=== PATIENT | female | born 1995 | race African-American/Black ===

== ENCOUNTER 2024-10-01 22:14 | Emergency (ER) | payer MEDICAID ==
[~2024-10-01] VITALS: Ht 167.6 cm; Wt 74.0 kg
[2024-10-01 22:15] VITALS: BP 140/88; PULSE 110; RESP 22; TEMP 98.5; O2SAT 100
[2024-10-02 00:09] LABS: BASOPHILS % 0.2 % (0.0-2.0); DIFFERENTIAL COMMENT 0; EOSINOPHILS % 0.8 % (0.0-5.0); HEMATOCRIT. 37.6 % (36.0-48.0); LYMPHOCYTES % 32.1 % (20.0-50.0); MEAN CORPUSCULAR HEMOGLOBIN 36.1 pg (28.0-32.0); MEAN CORPUSCULAR HGB CONC 34.5 g/dL (31.0-37.0); MEAN CORPUSCULAR VOLUME 104.7 fL (81.0-99.0); MEAN PLATELET VOLUME 7.2 fl (7.4-10.4); MONOCYTES % 11.3 % (2.0-8.0); NEUTROPHILS % 55.6 % (40.0-76.0); PLATELET 187 x1000/uL (130-400); RED BLOOD CELL COUNT 3.59 mill/uL (4.2-5.4); RED CELL DISTRIBUTION WIDTH 14.8 % (11.6-14.6)
[2024-10-02 00:13] LABS: CHLORIDE 109 mEq/L (98-107); POTASSIUM 4.3 mEq/L (3.5-5.1); SODIUM 146 mEq/L (136-145)
[2024-10-02 00:14] LABS: CALCIUM 9.8 mg/dL (8.7-10.4); CARBON DIOXIDE 27 mEq/L (21-32)
[2024-10-02 00:19] LABS: CREATININE 0.7 mg/dL (0.6-1.0); GLUCOSE 86 mg/dL (70-105)
[2024-10-02 00:21] LABS: ALANINE AMINOTRANSFERASE 80 IU/L (10-49); ALBUMIN 4.6 g/dL (3.2-4.8); ASPARTATE AMINOTRANSFERASE 75 IU/L (<34); BILIRUBIN DIRECT 0.1 mg/dL (<=3.0); BILIRUBIN TOTAL 0.3 mg/dL (0.1-1.0); LACTIC ACID 2.7 mmol/L (0.4-2.0); PROTEIN TOTAL 7.9 g/dL (6.0-8.3)
[2024-10-02 00:30] LABS: ETHANOL BLOOD 316 mg/dL (<10)
[2024-10-02 00:44] LABS: UREA NITROGEN BLOOD < 5 mg/dL (9-23)
[2024-10-02 01:10] LABS: HCG SCREEN NEGATIVE
[2024-10-02] MEDS ORDERED: NAPR220C61 MT (03:40)
== END 2024-10-02 04:33 | disposition home or self-care (01) ==
LOC: ER 22:14
DX: M79.661 Pain in right lower leg (principal); M79.10 Myalgia, unspecified site; I10 Essential (primary) hypertension
CPT/HCPCS: 36415; 80048; 80076; 80320; 83605; 84703; 85025; 86850; 86900; 93971; 99284; G0480

== ENCOUNTER 2024-10-11 01:21 | Emergency (ER) | payer MEDICAID ==
[~2024-10-11] VITALS: Ht 162.6 cm; Wt 71.0 kg
[~2024-10-11 01:21] MED LIST: NAPR220C61 MT
[2024-10-11 01:46] VITALS: BP 115/76; TEMP 97.8; O2SAT 99
[2024-10-11 02:52] VITALS: PULSE 121; RESP 20; O2SAT 98
[2024-10-11 04:27] LABS: BASOPHILS % 0.2 % (0.0-2.0); DIFFERENTIAL COMMENT 0; EOSINOPHILS % 1.1 % (0.0-5.0); HEMATOCRIT. 36.6 % (36.0-48.0); HEMOGLOBIN. 12.5 g/dL (12.0-16.0); LYMPHOCYTES % 56.2 % (20.0-50.0); MEAN CORPUSCULAR HGB CONC 34.3 g/dL (31.0-37.0); MEAN PLATELET VOLUME 6.9 fl (7.4-10.4); MONOCYTES % 12.4 % (2.0-8.0); NEUTROPHILS % 30.1 % (40.0-76.0); PLATELET 466 x1000/uL (130-400); RED BLOOD CELL COUNT 3.48 mill/uL (4.2-5.4); RED CELL DISTRIBUTION WIDTH 15.3 % (11.6-14.6); WHITE BLOOD COUNT 4.6 x1000/uL (4.5-11.0)
[2024-10-11 04:35] LABS: CHLORIDE 107 mEq/L (98-107); POTASSIUM 3.4 mEq/L (3.5-5.1); SODIUM 144 mEq/L (136-145)
[2024-10-11 04:36] LABS: CALCIUM 9.6 mg/dL (8.7-10.4); CARBON DIOXIDE 27 mEq/L (21-32)
[2024-10-11 04:41] LABS: CREATININE 0.7 mg/dL (0.6-1.0); GLUCOSE 96 mg/dL (70-105)
[2024-10-11 05:00] LABS: UREA NITROGEN BLOOD < 5 mg/dL (9-23)
[2024-10-11 05:19] LABS: HCG SCREEN NEGATIVE
[2024-10-11] MEDS ORDERED: AZIT250T12 MT (05:32)
== END 2024-10-11 05:45 | disposition home or self-care (01) ==
LOC: ER 01:21
DX: J20.9 Acute bronchitis, unspecified (principal); I10 Essential (primary) hypertension; F41.9 Anxiety disorder, unspecified; Z98.890 Other specified postprocedural states
CPT/HCPCS: 36415; 71045; 80048; 84703; 85025; 99284

== ENCOUNTER 2025-02-22 21:54 | Emergency (ER) | payer MEDICAID ==
[~2025-02-22] VITALS: Ht 162.6 cm; Wt 70.0 kg
[~2025-02-22 21:54] MED LIST changes: +AZIT250T12 MT
[2025-02-22 21:56] VITALS: O2SAT 100
[2025-02-23] LABS: BASOPHILS % 0.6 % (0.0-2.0); DIFFERENTIAL COMMENT 0; EOSINOPHILS % 1.8 % (0.0-5.0); HEMATOCRIT. 39.8 % (36.0-48.0); HEMOGLOBIN. 13.3 g/dL (12.0-16.0); MEAN CORPUSCULAR HEMOGLOBIN 35.7 pg (28.0-32.0); MEAN CORPUSCULAR HGB CONC 33.4 g/dL (31.0-37.0); MEAN CORPUSCULAR VOLUME 107.2 fL (81.0-99.0); MEAN PLATELET VOLUME 7.9 fl (7.4-10.4); NEUTROPHILS % 32.6 % (40.0-76.0); PLATELET 176 x1000/uL (130-400); RED BLOOD CELL COUNT 3.71 mill/uL (4.2-5.4); RED CELL DISTRIBUTION WIDTH 14.3 % (11.6-14.6); WHITE BLOOD COUNT 4.1 x1000/uL (4.5-11.0)
[2025-02-23 00:04] LABS: CHLORIDE 102 mEq/L (98-107); POTASSIUM 3.7 mEq/L (3.5-5.1); SODIUM 143 mEq/L (136-145)
[2025-02-23 00:05] LABS: CALCIUM 9.5 mg/dL (8.7-10.4); CARBON DIOXIDE 23 mEq/L (21-32)
[2025-02-23 00:10] LABS: CREATININE 0.7 mg/dL (0.6-1.0); GLUCOSE 122 mg/dL (70-105); UREA NITROGEN BLOOD 7 mg/dL (9-23)
[2025-02-23 00:37] VITALS: BP 125/70; PULSE 100; RESP 18; TEMP 36.7; O2SAT 99
== END 2025-02-23 00:38 | disposition home or self-care (01) ==
LOC: ER 21:54
DX: F10.129 Alcohol abuse with intoxication, unspecified (principal); F41.9 Anxiety disorder, unspecified; I10 Essential (primary) hypertension; Z79.899 Other long term (current) drug therapy; Z98.890 Other specified postprocedural states; Y90.9 Presence of alcohol in blood, level not specified
CPT/HCPCS: 36415; 80048; 85025; 99283

== ENCOUNTER 2025-04-03 21:30 | Emergency (ER) | payer MEDICAID ==
[~2025-04-03] VITALS: Ht 167.6 cm; Wt 73.0 kg
[2025-04-03 21:46] VITALS: O2SAT 98
[2025-04-03] MEDS: SODIUM CHLORIDE 0.9% 1,000 ML IV ONE (22:00)
[2025-04-03 22:51] LABS: BASOPHILS % 0.8 % (0.0-2.0); DIFFERENTIAL COMMENT 0; EOSINOPHILS % 1.2 % (0.0-5.0); HEMATOCRIT. 43.1 % (36.0-48.0); HEMOGLOBIN. 14.5 g/dL (12.0-16.0); LYMPHOCYTES % 39.9 % (20.0-50.0); MEAN CORPUSCULAR HEMOGLOBIN 35.5 pg (28.0-32.0); MEAN CORPUSCULAR HGB CONC 33.6 g/dL (31.0-37.0); MEAN CORPUSCULAR VOLUME 105.4 fL (81.0-99.0); MEAN PLATELET VOLUME 7.7 fl (7.4-10.4); MONOCYTES % 6.5 % (2.0-8.0); NEUTROPHILS % 51.6 % (40.0-76.0); PLATELET 331 x1000/uL (130-400); RED BLOOD CELL COUNT 4.09 mill/uL (4.2-5.4); RED CELL DISTRIBUTION WIDTH 15.9 % (11.6-14.6); WHITE BLOOD COUNT 4.7 x1000/uL (4.5-11.0)
[2025-04-03 22:57] LABS: CHLORIDE 103 mEq/L (98-107); POTASSIUM 3.9 mEq/L (3.5-5.1); SODIUM 143 mEq/L (136-145)
[2025-04-03 22:58] LABS: CARBON DIOXIDE 26 mEq/L (21-32)
[2025-04-03 23:00] LABS: HCG SCREEN NEGATIVE
[2025-04-03 23:03] LABS: CREATININE 0.9 mg/dL (0.6-1.0)
[2025-04-03 23:04] LABS: GLUCOSE 90 mg/dL (70-105); UREA NITROGEN BLOOD 5 mg/dL (9-23)
[2025-04-03 23:32] LABS: ETHANOL BLOOD 420 mg/dL (<10)
[2025-04-04 04:24] VITALS: BP 128/80; PULSE 82; RESP 18; TEMP 36.9; O2SAT 98
== END 2025-04-04 04:43 | disposition home or self-care (01) ==
LOC: ER 21:30
DX: T51.0X1A Toxic effect of ethanol, accidental (unintentional), initial encounter (principal); G92.9 Unspecified toxic encephalopathy; I10 Essential (primary) hypertension; F17.200 Nicotine dependence, unspecified, uncomplicated; Z79.899 Other long term (current) drug therapy; Z98.890 Other specified postprocedural states; Y92.481 Parking lot as the place of occurrence of the external cause
CPT/HCPCS: 80048; 80320; 84703; 85025; 36415; 99285; J7030; G0480